=== PATIENT | male | born 1955 | race Caucasian/White ===

== ENCOUNTER 2022-08-03 15:40 | Emergency (ER) | payer OTHER, SELFPAY ==
[2022-08-03 15:50] VITALS: BP 141/89; PULSE 71; RESP 16; TEMP 36.8; O2SAT 100
[2022-08-03 15:54] VITALS: BP 141/89; PULSE 71; RESP 16; TEMP 36.8; O2SAT 100
--- NOTE | 2022-08-03 15:57 | ED.WOUNDLAC ---
HPI - Wound/Laceration General Chief Complaint: Wound/Laceration Stated Complaint: lt knee injury/stitches Time Seen by Provider: 08/03/22 16:15 Source: patient Mode of arrival: ambulatory Limitations: no limitations History of Present Illness HPI narrative: 66-year-old male presented for complaint laceration above the left knee after injury just prior to arrival. 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 It cut through the jeans he was wearing. He applied pressure to the site. States he walked about 1/4 mile home after the injury, and the bleeding had stopped. Denies numbness, tingling or weakness of the extremity. Endorses full ROM to the knee. Up to date on tetanus. Related Data Allergies Allergy/AdvReac Type Severity Reaction Status Date / Time No Known Allergies Allergy Unknown Verified 08/03/22 15:53 Review of Systems Review of Systems: CONSTITUTIONAL: Denies body aches, fever, chills EYES: Denies visual changes ENT: Denies rhinorrhea, congestion CARDIOVASCULAR: Denies chest pain, palpitations, or edema. RESPIRATORY: Denies cough or dyspnea. GASTROINTESTINAL: Denies abdominal pain, nausea, vomiting, or diarrhea. SKIN: Reports left leg wound MUSCULOSKELETAL: Denies back pain, joint pain, or myalgia. NEUROLOGIC: Denies headache, numbness, tingling, or weakness. All systems reviewed & are unremarkable except as noted in HPI and below PMFSH Past Medical History Medical History (Updated 08/03/22 @ 17:43 by Yashira Dwyer, KETAN) History of fractured pelvis History of rib fracture No pertinent past medical history Comments At time of signature, I have reviewed and agree with nursing past medical, surgical, social and family history unless otherwise noted. Please see nursing chart for further information. There is no relevant family history pertinent to the presenting complaint Exam Narrative: GENERAL: Well-appearing CHEST: Speaks in full sentences. No respiratory distress. HEART: Regular rate and rhythm. Normal and equal peripheral pulses. EXTREMITIES: LLE has normal strength and sensation, normal range of motion. No swelling or tenderness. Pulse palpable and equal bilaterally, skin warm, dry, pink. Capillary refill less than 3 seconds. SKIN: Warm, dry, Left leg superior to patella with 5cm horizontal linear laceration, edges approximate, no tendon or muscle exposed, bleeding controlled NEURO: Alert and oriented x3. PSYCH: Normal mood and affect Course Course Emergency Course: Patient is aware of diagnosis, understands and agrees to treatment plan. Anticipatory guidance given. Patient agrees to follow-up as directed and is aware of reasons to seek care at the emergency department. Portions of this record may have been created with voice recognition software Level of Care: Express Care Visit Vital Signs Vital signs: Vital Signs Temperature 98.2 F 08/03/22 15:50 Pulse Rate 71 08/03/22 15:50 Respiratory Rate 16 08/03/22 15:50 Blood Pressure 141/89 H 08/03/22 15:50 Pulse Oximetry 100 08/03/22 15:50 Oxygen Delivery Room Air 08/03/22 15:50 Temperature 98.2 F 08/03/22 15:54 Pulse Rate 71 08/03/22 15:54 Respiratory Rate 16 08/03/22 15:54 Blood Pressure 141/89 H 08/03/22 15:54 Pulse Oximetry 100 08/03/22 15:54 Oxygen Delivery Room Air 08/03/22 15:54 Reviewed Procedures Laceration left leg: Date: 08/03/22 Site: lower extremity Size (cm): 5 Description: linear and contaminated Depth: simple, single layer Local Anesthetic: lidocaine 1% Amount of anesthesia used (mL): 14 Pre-repair: irrigated extensively (over 500mL, technicare and wound cleanser) and extensive debridement (removed all visualized fragments) ====== Skin Level ====== Skin layer closed with: nylon Size (cm): 5-0 Number of sutures: 5 Technique: simple, interrupted ====== Subcutaneous Layer ======
[2022-08-03] MEDS: LIDOCAINE HCL 1% LOCAL INJ 2 ML AMPUL 10 ML INFILTRATE (16:37)
[2022-08-03] MEDS: LIDOCAINE HCL 1% LOCAL INJ 2 ML AMPUL 4 ML INFILTRATE (17:20)
== END 2022-08-03 17:40 | disposition home or self-care (01) ==
PROVIDERS: Emergency Provider Nurse Practitioner Family
DX: S71.112A Laceration without foreign body, left thigh, initial encounter (principal); W45.8XXA Other foreign body or object entering through skin, initial encounter
CPT/HCPCS: 12002; 99213; G0463